=== PATIENT | female | born 1960 | race Caucasian/White ===

== ENCOUNTER 2024-05-13 15:54 | Outpatient (CLI) | payer OTHER, SELFPAY | END 2024-05-13 15:55 | disposition home or self-care (01) | PROVIDERS: PCP Family Medicine; Visit Provider Physician Assistant | DX: L02.91 Cutaneous abscess, unspecified (principal) | CPT/HCPCS: 87070; 87186 ==

== ENCOUNTER 2024-05-24 08:43 | Outpatient (CLI) | payer OTHER, SELFPAY | END 2024-05-24 08:44 | disposition home or self-care (01) | LOC: NFLDREF 05-26 00:31 | PROVIDERS: PCP Family Medicine; Referring Provider Family Medicine; Visit Provider Family Medicine | DX: Z01.419 Encounter for gynecological examination (general) (routine) without abnormal findings (principal); D50.9 Iron deficiency anemia, unspecified; E78.5 Hyperlipidemia, unspecified; D51.9 Vitamin B12 deficiency anemia, unspecified; R03.0 Elevated blood-pressure reading, without diagnosis of hypertension; R53.82 Chronic fatigue, unspecified; R74.8 Abnormal levels of other serum enzymes; G25.81 Restless legs syndrome; E66.9 Obesity, unspecified | CPT/HCPCS: 80053; 80061; 82607; 82728; 84443 ==

== ENCOUNTER 2024-06-15 11:29 | Outpatient (CLI) | payer OTHER, SELFPAY | END 2024-06-15 11:30 | disposition home or self-care (01) | LOC: OP CLINIC 11:29 | PROVIDERS: PCP Family Medicine; Visit Provider Surgery | DX: Z53.8 Procedure and treatment not carried out for other reasons (principal) ==

== ENCOUNTER 2024-06-21 11:49 | Outpatient (CLI) | payer OTHER, SELFPAY ==
--- NOTE | 2024-06-21 13:05 | W.ANESCHARGE ---
Anesthesia Charges Start Date/Time Anesthesia Start Date: 06/21/24 Anesthesia Start Time: 12:39 Stop Date/Time Anesthesia Stop Date: 06/21/24 Anesthesia Stop Time: 13:26
--- NOTE | 2024-06-21 13:29 | W.ANESCHARGE ---
Anesthesia Charges Start Date/Time Anesthesia Start Date: 06/21/24 Anesthesia Start Time: 12:39 Stop Date/Time Anesthesia Stop Date: 06/21/24 Anesthesia Stop Time: 13:26
== END 2024-06-21 11:50 | disposition home or self-care (01) ==
LOC: OP CLINIC 11:49
PROVIDERS: PCP Family Medicine; Visit Provider Surgery
DX: Z12.11 Encounter for screening for malignant neoplasm of colon (principal); K25.4 Chronic or unspecified gastric ulcer with hemorrhage; K92.2 Gastrointestinal hemorrhage, unspecified
CPT/HCPCS: 00813; 43239; 45378; 88305; J2704

== ENCOUNTER 2024-06-30 15:04 | Outpatient (CLI) | payer OTHER, SELFPAY ==
--- NOTE | 2024-06-30 15:20 | CRLHL7_ITS ---
For Patients: As a result of the Century Cures Act, medical imaging exams and procedure reports are released immediately into your electronic medical record. You may view this report before your referring provider. If you have questions, please contact your health care provider. BILATERAL DIGITAL SCREENING MAMMOGRAM WITH COMPUTER-AIDED DETECTION AND TOMOSYNTHESIS CLINICAL HISTORY: Routine screening exam. COMPARISON: 04/18/2022, 04/03/2022, 09/07/2020, 08/18/2019. TECHNIQUE: Digital mammogram in CC and MLO projections including computer-aided detection (CAD). Tomosynthesis was used in this interpretation. BREAST COMPOSITION: The breasts are extremely dense, which lowers the sensitivity of mammography. FINDINGS: RIGHT Breast: No suspicious findings. LEFT Breast: Focal asymmetric density retroareolar plane slightly laterally 7 cm from the nipple. IMPRESSION: LEFT breast asymmetry/mass. RECOMMENDATIONS: Additional mammographic views of the LEFT breast including 3D spot compression CC/MLO. LEFT breast ultrasound may also be required. The [facility] will contact the patient for follow-up. BI-RADS Category 0: Incomplete: Need Additional Imaging Evaluation and/or Prior Mammograms for Comparison. A lay language report of this examination will be provided to the patient. Dictated by Davidson Martin MD @ 07/01/2024 11:03:37 AM /sp/lazaro SP/Dictated by: Davidson Martin MD @ 07/01/2024 11:03:00 AM (Electronically Signed)
== END 2024-06-30 15:05 | disposition home or self-care (01) ==
LOC: MAMMO 15:05
PROVIDERS: PCP Family Medicine; Visit Provider Family Medicine
DX: Z12.31 Encounter for screening mammogram for malignant neoplasm of breast (principal); N63.20 Unspecified lump in the left breast, unspecified quadrant; R92.2 Inconclusive mammogram
CPT/HCPCS: 77063; 77067

== ENCOUNTER 2024-07-12 10:42 | Outpatient (CLI) | payer OTHER, SELFPAY ==
--- NOTE | 2024-07-12 10:45 | CRLHL7_ITS ---
For Patients: As a result of the Cures Act, medical imaging exams and procedure reports are released immediately into your electronic medical record. You may view this report before your referring provider. If you have questions, please contact your health care provider. LEFT DIAGNOSTIC MAMMOGRAM WITH COMPUTER-AIDED DETECTION AND TOMOSYNTHESIS LEFT BREAST ULTRASOUND CLINICAL HISTORY: LEFT breast mass/asymmetry. COMPARISON: 06/30/2024. TECHNIQUE: Digital LEFT mammogram in two projections. Computer-aided detection and tomosynthesis were used in this interpretation. Real-time ultrasound imaging of LEFT breast with imaging documentation. Scanning was performed by both the technologist and the radiologist. BREAST COMPOSITION: The breasts are heterogeneously dense, which may obscure small masses. FINDINGS: 3D spot compression CC/MLO LEFT breast mammograms performed. Decreased conspicuity of previously noted asymmetric density. No architectural distortion or suspicious calcifications. Targeted ultrasound performed in the retroareolar breast corresponding to the asymmetric density. Dense fibroglandular tissue is present. There are small cysts present with increased through transmission at mid depth retroareolar region measuring up to 7 x 5 x 6 mm. No suspicious masses. IMPRESSION: Benign fibrocystic changes and dense fibroglandular tissue LEFT breast. No suspicious findings or evidence of malignancy. RECOMMENDATIONS: Routine screening mammography. BI-RADS Category 2: Benign Results and recommendations discussed with the patient. A lay language report of this examination will be provided to the patient. Dictated by Davidson Martin MD @ 07/12/2024 2:55:34 PM /sergei/lazaro SP/Dictated by: Davidson Martin MD @ 07/12/2024 2:55:00 PM (Electronically Signed)
--- NOTE | 2024-07-12 11:15 | CRLHL7_ITS ---
For Patients: As a result of the Century Cures Act, medical imaging exams and procedure reports are released immediately into your electronic medical record. You may view this report before your referring provider. If you have questions, please contact your health care provider. PLEASE SEE LEFT BREAST DIAGNOSTIC MAMMOGRAM PERFORMED SAME DAY. CRL:sp SP/Dictated by: Davidson Martin MD @ 07/12/2024 2:55:00 PM (Electronically Signed)
== END 2024-07-12 10:43 | disposition home or self-care (01) ==
LOC: MAMMO 10:42
PROVIDERS: PCP Family Medicine; Visit Provider Family Medicine
DX: N63.20 Unspecified lump in the left breast, unspecified quadrant (principal); R92.8 Other abnormal and inconclusive findings on diagnostic imaging of breast
CPT/HCPCS: 76642; 77065; G0279

== ENCOUNTER 2024-07-21 11:08 | Outpatient (CLI) | payer OTHER, SELFPAY | END 2024-07-21 11:09 | disposition home or self-care (01) | LOC: NFLDREF 07-22 08:42 | PROVIDERS: PCP Family Medicine; Referring Provider Family Medicine; Visit Provider Family Medicine | DX: D51.9 Vitamin B12 deficiency anemia, unspecified (principal); D50.9 Iron deficiency anemia, unspecified; R03.0 Elevated blood-pressure reading, without diagnosis of hypertension | CPT/HCPCS: 80053; 82607; 82728; 83540; 83550; 86231; 86258; 86364 ==

== ENCOUNTER 2024-08-23 13:25 | Outpatient (CLI) | payer OTHER, SELFPAY ==
--- OUTSIDE RECORDS SUMMARY | 2024-08-26 06:01 | XMS_ITS | Clinical Summary ---
Author Organization [facility] Address [place], [place] [address] Care Team Providers Care Sales Representative Facility Services Name Role Phone Clinic, No Pcp Or Primary Care Provider Unavaila ble Allergies Active Allergy Reactions Criticality Noted Date Comments Aspirin Anxiety 06/19/2021 Unlisted Allergen (Include D etail In Comments) Hives,Rash 03/13/2023 Black Aunts Venom-Wasp Hives,Rash 03/13/2023 Medications Medication Sig Dispensed Refills Start Date End Date Status MULTIVIT &MINERALS/FERROUS FUM (MULTI VITAMIN ORAL) Take 1 Tab by mouth once daily. Active EPINEPHrine (EPIPEN) 0.3 mg/0.3 mL injectionIndicati ons:Toxic effect of venom of other arthropod, undetermined, initial encounter Inject 0.3 mg intramuscular one time if needed for anaphylaxis. Inject into the thigh. 2 Each 04/04/2021 Active ibuprofen (ADVIL; MOTRIN) 600 mg tablet Take 1 Tablet (600 mg) by mouth 3 times daily with meals. 60 Tablet 2 06/25/2021 Active terbinafine HCL (LAMISIL) 250 mg tablet Take 1 Tablet (250 mg) by mouth once daily. 90 Tablet 04/11/2022 Active albuterol HFA (PRO-AIR; VENTOLIN; PROVENTIL) 90 mcg/actuation inhalerIndication s:SOB (shortness of breath),Infiltrat e of left lung present on chest x-ray Inhale 1-2 Puffs by mouth every 4 hours if needed for Shortness Of Breath. 1 Each 01/15/2023 Active FLUoxetine (PROZAC) 20 mg capsule Take 2 Capsules (40 mg) by mouth once daily. 60 Capsule 03/17/2024 Active Active Problems Problem Noted Date Diagnosed Date Allergic rhinitis 03/13/2023 Anxiety 03/13/2023 Chronic bronchitis 03/13/2023 Pneumonia 03/03/2023 Open bimalleolar fracture, l eft, type III, initial encounter 01/23/2023 01/23/2023 Ankle fracture, left, open type I or II, initial encounter 06/19/2021 01/23/2023 Obstructive sleep apnea syndrome 02/15/2021 01/23/2023 Personal history of diseases of the blood and blood-forming organs and certain disorders involving the immune mechanism 05/14/2018 01/23/2023 Personal history of colonic polyps 05/14/2018 Overweight 05/14/2018 01/23/2023 Asymptomatic varicose veins of bilateral lower e xtremities 05/14/2018 01/23/2023 Recurrent major depressive disorder 04/18/2015 01/23/2023 Overview (01/23/2023): Depression Major Recurrent NOS Encounters Date Type Department Care Team Description 06/21/2024 Lab Requisition [facility] [phone] Brandy Roberts MD from Last 3 Months Immunizations Name Administration Dates Next Due Td, Preservative Free (age >= 7 Years) ,03/25/2007 Tdap 05/20/2012,03/25/2007 Zoster (Shingrix-RZV, recombinant) 01/23/2023, Family History Medical History Relation Name Comments Cancer-breast Sister Relation Name Status Comments Sister Social History Tobacco Use Types Packs/Day Years Used Date Smoking Tobacco: Never Passive Smoke Exposure: Never Smokeless Tobacco: Never Tobacco Cessation:Counseling Given: Not Answered Alcohol Use Standard Drinks/Week Comments Yes 0 (1 standard drink = 0.6 oz pur e alcohol) socially Social Connections Answer Date Recorded Frequency of Communication with Friends and Fami ly Not on file 01/23/2023 Sex and Gender Information Value Date Recorded Sex Assigned at Not on file Gender Identity Not on file Sexual Orientation Not on file Obstetrics History Para Term AB IAB SAB Ectopic Multiple Livin g Live Births 1 1 1 Date Outcome GA Total Labor Labor/2nd/3rd Weight Sex Type Anes PTL Jemma A1 A5 Name Clin Term Last Filed Vital Signs Vital Sign Reading Time Taken Comments Blood Pressure 104/72 03/13/2023 11:13 AM CDT Pulse 86 03/13/2023 11:13 AM CDT Temperature 36.7 ??C (98.1 ??F) 03/13/2023 11:13 AM C DT Respiratory Rate 16 03/13/2023 11:13 AM CDT Oxygen Saturation 99% 03/13/2023 11:13 AM CDT Inhaled Oxygen Concentration - - Weight 92.1 kg (203 lb) 01/23/2023 9:25 AM CDT Height 174 cm (5' 8.5) 01/23/2023 9:25 AM CDT Body Mass Index 30.42 01/23/2023 9:25 AM CDT Plan of Treatment Health Maintenance Due Date Last Done Comments Pneumococcal series for age 6-64 (1 of 2 - PCV) 1968 Depression screening for age 12+ 1974 HIV for age 15-65 1977 Hepatitis C screening for ag e 18-79 1980 Pap test for age 21-65 1983 Lipids for age 45-75 2007 BMI (ht and wt on same day) for age 18+ 01/24/2024 01/23/2023, 02/03/2017 Mammogram for age 45-75 04/02/2024 04/02/2023 COVID-19 vaccine series ( season) 2024 08/21/2021 Influenza for age 50-64 07/04/2024 Colonoscopy through age 75 03/10/2027 03/10/2017 Tetanus booster 06/20/2031 06/20/2021, 05/03, 03/25/2007, Additional history exists Tdap Completed 05/20/2012, 03/25/2007 Zoster (shingles) series for age 50+ Completed 01/23/2023, 04/03/2022 Procedures Procedure Name Priority Date/Time Associated Diagnosis Comments LAB TRACKING EVENT Routine 06/21/2024 12 :45 PM CDT PATH TISSUE EXAM Routine 06/21/2024 12:4 5 PM CDT XR MAMMO GRAY BILAT SCREEN Routine 04/02/2023 7:35 AM CDT Visit for screening mammogram COLONOSCOPY 03/10/2017 9:59 AM CDT from Last 3 Months or Most Recently Relevant to Health Maintenance Results * LAB TRACKING EVENT (06/21/2024 12:45 PM CDT) Other (Other) Client Collect / Unknown 06/21/2024 12:45 PM CDT 06/21/2024 10:18 PM CDT Brandy Roberts MD LAB [facility] [address] [place] [address], * PATH TISSUE EXAM (06/21/2024 12:45 PM CDT) Case Report Pathology Report ?Case: [id number] ? Authorizing Provider: ??Brandy Roberts MD ??Collected: ? 06/21/2024 1245 ? Ordering Location: ? [facility] ?Received: ?06/22/2024 0819 ? Pathologist: ? Yomi Dior ? MD LEELEE ? Specimens: ?? A) - Gastric Biopsy ? B) - Stomach Biopsy ? 06/23/2024 10:14 AM [facility] Final Diagnosis A) STOMACH, CARDIA, BIOPSY: 1. Reactive gastropathy, endoscopically erosive (see comment) ?? a. Sampling: Body mucosa ?? b. Distribution: Body mucosa 2. Negative for inflammation, atrophy and Helicobacter B) STOMACH, BIOPSY: 1. Normal gastric antral and body mucosae 2. Negative for Helicobacter 06/23/2024 10:14 AM [facility] Comment A) The likely etiology is an ongoing non-inflammatory type mucosal injury due to a chemical type of injury; this may be due to ingestion of non-steroidal anti-inflammatory drugs, aspirin (via prostaglandin-med iated injury), excess alcohol, corticosteroids, or bile/alkaline reflux, the latter usually in the setting of a gastroenteric anastomosis. 06/23/2024 10:14 AM [facility] Clinical Information Ms. Delaney is a 63 y.o. who presents with suspected upper GI bleeding in a patient with chronic blood loss. EGD findings include: -Few nonbleeding superficial gastric ulcers in the cardia -Normal gastric body - Normal duodenum and esophagus 06/23/2024 10:14 AM CDT [facility] Gross Description A) Received in formalin are 4 chairez mucosal fragments averaging 2 mm in greatest dimension, which are entirely submitted in one cassette. It is labeled with the patient's name and designated cardia BX. B) Received in formalin are 4 chairez mucosal fragments averaging 3 mm in greatest dimension, which are entirely submitted in one cassette. It is labeled with the patient's name and designated random stomach. Yamile Sher 06/22/2024 11:57 AM 06/23/2024 10:14 AM CDT [facility] Microscopic Description The final diagnosis is based on microscopic examination of appropriate sections of all specimens. 06/23/2024 10:14 AM CDT [facility] Additional Information Interpreted at [facility], Central Laboratory - [address] [facility] [address] [address] 06/23/2024 10:14 AM CDT [facility] Other GASTRIC BIOPSY SPECIMEN / Unknown 06/21/2024 12:45 PM CDT 06/22/2024 8:19 AM CDT Specimen (specimen) (Stomach Biopsy) 06/21/2024 12:45 PM CDT 06/22/2024 8:19 AM CDT Brandy Roberts MD PATHOLOG[facility] [address] [place] [address], * XR MAMMO GRAY BILAT SCREEN (04/02/2023 7:35 AM CDT) Anatomical Region Laterality Modality BREASTS, Breast Left, Breast Right Bilateral Mammography Impressions 04/03/2023 3:05 PM CDT ??There is no radiographic evidence for malignancy. ??Recommend annual mammograms. MAMMOGRAM ASSESSMENT: ??ACR 1 Negative PATIENTS: You will also receive a letter with your examination results in an easy to read format. ??If you have questions about your results, please contact your referring provider. Narrative 04/03/2023 3:05 PM CDT For Patients: As a result of the Century Cures Act, medical imaging exams and procedure reports are released immediately into your electronic medical record. You may view this report before your referring provider. If you have questions, please contact your health care provider. XR MAMMO GRAY BILAT SCREEN [[id number]] CLINICAL HISTORY: ??This is an asymptomatic 62 y.o. patient. INDICATION FOR EXAM: Mammogram Screening. TECHNIQUE: CC & MLO views were obtained. ??This study was evaluated with the assistance of Computer-Aided Detection. Breast Tomosynthesis was used in interpretation. COMPARISON FILM: Yes 04/03/22 Outside Facility 09/07/20 Outside Facility FINDINGS: ??The breasts are heterogeneously dense, which may obscure small masses. There are no dominant masses, suspicious micro calcifications or areas of architectural distortion. Carri Cheatham MD MAMMO * COLONOSCOPY (03/10/2017 9:59 AM CDT) 03/10/2017 9:59 AM CDT Narrative Transcriptions Jairo Maldonado - 03/10/2017 11:28 AM CDT Patient Name: Velia Delaney Procedure Date: 03/10/2017 Gender: Female Date of : 1960 Admit Type: Ambulatory Procedure: Colonoscopy Proceduralist: Mary Rivera I. Decoux-Julinao (Nurse) Indications/Pre-Op Diagnosis: High risk colon cancer surveillance:Personal history of non-advanced adenoma Medications: Monitored Anesthesia Care, The level of sedation administered was moderate,Midazolam 5 mg IV, Fentanyl 100 micrograms IV Procedure Description: The patient had risks, benefits and alternatives explained to andgave informed consent. The patient had a stable cardiopulmonary status and judged an adequate candidate for conscious sedation. The Colonoscope was passed through the anus and advanced to thececum, identified by appendiceal orifice and ileocecal valve. Thecolonoscopy was performed without difficulty. The patient tolerated the procedure well. The quality of the bowel preparation was excellent. Complications: No immediate complications. Estimated blood loss: None. Estimated Blood Loss & Specimen: Estimated blood loss: none. Specimen collected - Yes and sent to Laboratory Findings: The perianal and digital rectal examinations were normal. The colon (entire examined portion) appeared normal. Impressions/Post-Op Diagnosis: - The entire examined colon is normal. - No specimens collected. Recommendation: - Repeat colonoscopy in 5 years for surveillance. Moderate Sedation: Moderate (conscious) sedation was administered by the endoscopy nurse and supervised by the endoscopist. The following parameters were monitored: oxygen saturation, heart rate, blood pressure, andresponse to care. Jairo Maldonado, 03/10/2017 11:28:02 AM This report has been signed electronically. Note Initiated On: 03/10/2017 9:59 AM Jairo Maldonado MD PROCEDURE ORD from Last 3 Months or Most Recently Relevant to Health Maintenance Advance Directives * Full Code (Latest Code Status on File) Date Activated Date Inactivated Comments 03/10/2017 9:58 AM 03/10/2017 2:11 PM * Full Code Date Activated Date Inactivated Comments 11/04/2014 2:54 PM 11/04/2014 5:59 PM * Full Code Date Activated Date Inactivated Comments 10/19/2014 7:06 AM 10/19/2014 4:23 PM Care Teams Sales Representative Facility Services Relationship Specialty Start Date End Date Clinic, No Pcp Or . PCP - General 06/19/21
== END 2024-08-23 13:26 | disposition home or self-care (01) ==
LOC: NFLDREF 08-26 06:00
PROVIDERS: PCP Family Medicine; Referring Provider Family Medicine; Visit Provider Family Medicine
DX: I10 Essential (primary) hypertension (principal)
CPT/HCPCS: 80048

== ENCOUNTER 2024-11-05 11:15 | Outpatient (CLI) | payer OTHER, SELFPAY | END 2024-11-05 11:16 | disposition home or self-care (01) | LOC: NFLDREF 14:28 | PROVIDERS: PCP Family Medicine; Referring Provider Family Medicine; Visit Provider Family Medicine | DX: I10 Essential (primary) hypertension (principal); D50.9 Iron deficiency anemia, unspecified | CPT/HCPCS: 80053; 82728 ==

== ENCOUNTER 2025-03-17 14:45 | Outpatient (RCR) | payer OTHER, SELFPAY | END 2025-07-15 23:59 | disposition home or self-care (01) | PROVIDERS: PCP Family Medicine; Visit Provider Physician Assistant | DX: M17.11 Unilateral primary osteoarthritis, right knee (principal); Z51.89 Encounter for other specified aftercare | CPT/HCPCS: 97110; 97140; 97162 ==

== ENCOUNTER 2025-10-03 09:53 | Outpatient (CLI) | payer OTHER, SELFPAY | END 2025-10-03 09:54 | disposition home or self-care (01) | PROVIDERS: PCP Internal Medicine; Visit Provider Internal Medicine | DX: I10 Essential (primary) hypertension (principal); E78.5 Hyperlipidemia, unspecified; D51.9 Vitamin B12 deficiency anemia, unspecified; Z12.31 Encounter for screening mammogram for malignant neoplasm of breast; Z86.2 Personal history of diseases of the blood and blood-forming organs and certain disorders involving the immune mechanism | CPT/HCPCS: 80048; 80061; 82607; 82728 ==